=== PATIENT | female | born 1990 | race Caucasian/White ===

== ENCOUNTER 2019-04-30 14:19 | Outpatient (CLI) | payer OTHER ==
--- NOTE | 2019-04-30 14:58 | ULT ---
LIMITED LEFT BREAST ULTRASOUND: DATE: 04/30/2019. PROVIDED CLINICAL HISTORY: Left breast lump. FINDINGS: Limited sonographic interrogation was performed in the 12 o'clock position of the left breast in the region of reported palpable concern. The sonographic appearance of the breast tissue in this region is normal. IMPRESSION: No sonographic abnormality is evident in the region of palpable concern. Negative sonographic findin gs should not preclude further evaluation of a clinically suspicious area. The patient is referred b ack to her clinician. POS: OFF
== END 2019-04-30 14:20 | disposition home or self-care (01) ==
LOC: BICULT 14:19
PROVIDERS: ATTEND Physician Assistant
DX: N63.21 Unspecified lump in the left breast, upper outer quadrant (principal)